=== PATIENT | male | born 1980 | race Native Hawaiian/Other Pacific Islander ===

== ENCOUNTER 2018-04-19 15:59 | Emergency (ER) | payer SELFPAY ==
[2018-04-19 16:12] VITALS: BP 150/96; TEMP 99.3; O2SAT 98
--- NOTE | 2018-04-19 16:15 | ED.PDOC ---
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 Timing/Duration: just prior to arrival Severity: mild Location: extremities - right leg Improving Factors: nothing Worsening Factors: nothing Associated Symptoms: denies symptoms Allergies/Adverse Reactions: Allergies NO KNOWN ALLERGY Allergy (Verified 04/19/18 16:12) Home Medications: Ambulatory Orders Amoxicillin [Amoxil] 1,000 mg PO BID 7 Days #30 cap 04/19/18 Review of Systems - Review of Systems Constitutional: States: no symptoms reported Musculoskeletal: States: no symptoms reported Skin: States: see HPI Neurological: States: no symptoms reported All other Systems: Reviewed and Negative, No Change from Baseline Past Medical History (General) - Patient Medical History Hx Stroke: No Hx Congestive Heart Failure: No Hx Diabetes: No Surgical History: no surgical history - Vaccination History Hx Tetanus, Diphtheria Vaccination: Yes - unknown Hx Influenza Vaccination: No - Social History Hx Tobacco Use: No Family Medical History - Family History Father Family History: Unknown Living Status: Unknown Physical Exam - Physical Exam General Appearance: Alert, Comfortable, No apparent distress Eyes, Ears, Nose, Throat Exam: normal ENT inspection Neck: supple Cardiovascular/Chest: normal peripheral pulses, regular rate, rhythm Respiratory: lungs clear Gastrointestinal/Abdominal: non tender, soft Back Exam: normal inspection Extremity: other - punctured wound right leg no bleeding noted Neurologic: alert, oriented x 3 Skin Exam: warm/dry, normal color Skin Problem Location: lower extremities - right leg Skin Character: other - wound Progress - Progress Progress: 04/19/18 16:17 Vital Signs - 8 hr 04/19/18 16:09 Temperature 99.3 F Pulse Rate [ 100 H Left Brachial] Respiratory 20 Rate Blood Pressure 150/96 [Right Arm] O2 Sat by Pulse 98 Oximetry Departure - Departure Clinical Impression: Puncture wound of leg not thigh, right Qualifiers: Encounter type: initial encounter Qualified Code(s): S81.831A - Puncture wound without foreign body, right lower leg, initial encounter Time of Disposition: 16:20 Disposition: Discharge to Home or Self Care Condition: Good Departure Forms: ED Discharge - Pt. Copy, Patient Portal Self Enrollment Instructions: DI for Puncture Wound Prescriptions: Amoxicillin [Amoxil] 1,000 mg PO BID 7 Days #30 cap Home Medications: Ambulatory Orders Amoxicillin [Amoxil] 1,000 mg PO BID 7 Days #30 cap 04/19/18 Additional Instructions: May take Aleve (over the counter) 1-2 tablets am/pm for pain;Return to ER as needed
[2018-04-19] MEDS: AMOXICILLIN 500 MG CAP PO ONE (16:27)
[2018-04-19] MEDS: TETANUS,DIPHTHERIA,PERTUSSIS 1 EA SYG IM ONE (16:27)
== END 2018-04-19 17:03 | disposition home or self-care (01) ==
LOC: ER 15:59
DX: S81.831A Puncture wound without foreign body, right lower leg, initial encounter (principal); Z23 Encounter for immunization; W45.0XXA Nail entering through skin, initial encounter; Y92.69 Other specified industrial and construction area as the place of occurrence of the external cause